=== PATIENT | female | born 1950 | race Caucasian/White ===

== ENCOUNTER 2019-10-31 17:33 | Outpatient (CLI) | payer OTHER | END 2019-10-31 17:34 | disposition home or self-care (01) | LOC: COV 17:33 | PROVIDERS: ATTEND Family Medicine | DX: R05 Cough (principal); R50.9 Fever, unspecified | CPT/HCPCS: 81599 ==

== ENCOUNTER 2022-08-02 11:26 | Outpatient (CLI) | payer MEDICARE | END 2022-08-02 11:27 | disposition short-term general hospital (02) | LOC: EMS 11:26 | DX: K59.00 Constipation, unspecified (principal); R41.82 Altered mental status, unspecified; R23.0 Cyanosis; T68.XXXA Hypothermia, initial encounter; X31.XXXA Exposure to excessive natural cold, initial encounter | CPT/HCPCS: A0425; A0429 ==

== ENCOUNTER 2023-01-11 10:41 | Outpatient (CLI) | payer MEDICARE ==
[2023-01-11 18:07] LABS: BASOPHILS # (AUTO) 0.1 10^3/uL (0.0-0.1); BASOPHILS % (AUTO) 0.9 %; EOSINOPHILS # (AUTO) 0.2 10^3/uL (0.0-0.7); EOSINOPHILS % (AUTO) 2.4 %; HCT - HEMATOCRIT 40.9 % (37.0-47.0); HGB - HEMOGLOBIN 13.1 g/dL (12.0-16.0); LYMPHOCYTES # (AUTO) 1.9 10^3/uL (1.5-3.5); MEAN CORPUSCULAR VOLUME 93.8 fL (81.0-99.0); MEAN PLATELET VOLUME 9.9 fL (7.9-10.8); MONOCYTES # (AUTO) 0.5 10^3/uL (0.0-1.0); MONOCYTES % (AUTO) 7.2 %; NEUTROPHILS # (AUTO) 4.1 10^3/uL (1.5-6.6); NEUTROPHILS % (AUTO) 61.4 %; PLT - PLATELET COUNT 233 10^3/uL (130-450); RED BLOOD COUNT 4.36 10^6/uL (4.20-5.40); RED CELL DISTRIBUTION WIDTH 12.9 % (12.0-15.0); WHITE BLOOD COUNT 6.7 x10^3/uL (4.8-10.8)
[2023-01-11 18:27] LABS: THYROID STIMULATING HORMONE 5.62 uIU/mL (0.34-5.60)
[2023-01-11 18:29] LABS: ALBUMIN 3.9 g/dL (3.2-5.5); ALBUMIN/GLOBULIN RATIO 1.3 (1.0-2.2); ALKALINE PHOSPHATASE 69 IU/L (42-121); ALT ALANINE AMINOTRANSFERASE 19 IU/L (10-60); AST ASPARTATE AMINOTRANSFERASE 25 IU/L (10-42); BILIRUBIN,TOTAL 0.7 mg/dL (0.2-1.0); BUN - BLOOD UREA NITROGEN 15 mg/dL (6-20); CALCIUM 9.1 mg/dL (8.5-10.3); CARBON DIOXIDE - CO2 31 mmol/L (21-32); CHLORIDE 105 mmol/L (101-111); CHOL/HDL RATIO 2.6 (<4.4); CHOLESTEROL 166 mg/dL; CREATININE 0.8 mg/dL (0.4-1.0); GFR - MDRD 71 (>89); GLUCOSE 80 mg/dL (70-100); HDL CHOLESTEROL 64 mg/dL; LDL CHOLESTEROL,CALCULATED 88 mg/dL; LDL/HDL RATIO 1.4 (<4.4); POTASSIUM 3.9 mmol/L (3.5-5.0); SODIUM 141 mmol/L (135-145); TOTAL PROTEIN 6.9 g/dL (6.7-8.2); TRIGLYCERIDES 71 mg/dL; VLDL CHOLESTEROL 14 mg/dL
[2023-01-11 19:20] LABS: FREE T4 (FREE THYROXINE) 1.02 ng/dL (0.58-1.64)
== END 2023-01-11 10:42 | disposition home or self-care (01) ==
LOC: LAB.N 10:41
PROVIDERS: ATTEND Family Medicine
DX: I10 Essential (primary) hypertension (principal); F33.1 Major depressive disorder, recurrent, moderate
CPT/HCPCS: 36415; 80053; 80061; 83721; 84439; 84443; 85025

== ENCOUNTER 2024-01-11 13:21 | Emergency (ER) | payer MEDICARE ==
[2024-01-11 13:46] LABS: BASOPHILS # (AUTO) 0.1 10^3/uL (0.0-0.1); BASOPHILS % (AUTO) 0.9 %; EOSINOPHILS # (AUTO) 0.2 10^3/uL (0.0-0.7); HCT - HEMATOCRIT 35.3 % (37.0-47.0); HGB - HEMOGLOBIN 12.1 g/dL (12.0-16.0); LYMPHOCYTES # (AUTO) 1.5 10^3/uL (1.5-3.5); LYMPHOCYTES % (AUTO) 23.1 %; MEAN CORPUSCULAR HEMOGLOBIN 30.6 pg (27.0-31.0); MEAN CORPUSCULAR HGB CONC 34.3 g/dL (32.0-36.0); MEAN CORPUSCULAR VOLUME 89.1 fL (81.0-99.0); MEAN PLATELET VOLUME 10.6 fL (7.9-10.8); MONOCYTES # (AUTO) 0.5 10^3/uL (0.0-1.0); MONOCYTES % (AUTO) 8.4 %; NEUTROPHILS # (AUTO) 4.1 10^3/uL (1.5-6.6); NEUTROPHILS % (AUTO) 64.3 %; PLT - PLATELET COUNT 249 10^3/uL (130-450); RED BLOOD COUNT 3.96 10^6/uL (4.20-5.40); RED CELL DISTRIBUTION WIDTH 13.3 % (12.0-15.0); WHITE BLOOD COUNT 6.4 x10^3/uL (4.8-10.8)
[2024-01-11 14:03] LABS: ALBUMIN 3.8 g/dL (3.2-5.5); ALBUMIN/GLOBULIN RATIO 1.5 (1.0-2.2); BILIRUBIN,TOTAL 0.6 mg/dL (0.2-1.0); CALCIUM 9.8 mg/dL (8.5-10.3); POTASSIUM 3.2 mmol/L (3.5-4.5); TOTAL PROTEIN 6.3 g/dL (6.4-8.9)
[2024-01-11] MEDS ORDERED: iohexoL-300 100 ML VIAL ONE (14:22)
[2024-01-11] MEDS: SODIUM CHLORIDE 0.9% 1,000 ML IV STA (14:22)
--- NOTE | 2024-01-11 15:03 | CT Report ---
PROCEDURE: Head WO INDICATIONS: persistent vomiting TECHNIQUE: Noncontrast 4.5 mm thick angled axial sections acquired from the foramen magnum to the vertex. For r adiation dose reduction, the following was used: automated exposure control, adjustment of mA and/or kV according to patient size. COMPARISON: None. FINDINGS: Image quality: Excellent. The ventricular system and cortical sulci demonstrate atrophy, consistent for patient's stated age. There are areas of hypodensity in the periventricular and subcortical white matter. There is no acut e intra or extra-axial fluid collection. No acute hemorrhage, mass lesion or midline shift. Brainst em is unremarkable. Globes are symmetrical. Sinuses are aerated. Osseous structures are intact. IMPRESSION: 1. No acute intracranial process. 2. Moderate atrophy and chronic microvascular ischemic changes. Reviewed by: Radha Sims MD on 01/11/2024 3:02 PM PDT Approved by: Radha Sims MD on 01/11/2024 3:02 PM PDT Station ID: [id number]
[2024-01-11] MEDS: ONDANSETRON 4 MG/2 ML VIAL IVP STA (15:10)
--- NOTE | 2024-01-11 15:11 | CT Report ---
PROCEDURE: Abdomen/Pelvis W INDICATIONS: vomiting, progressive weight loss CONTRAST: 100ml [id number] TECHNIQUE: After the administration of intravenous contrast, a CT scan of the abdomen and pelvis was performed. Images were recorded and evaluated at appropriate window settings. Reformats: coronal and sagittal. F or radiation dose reduction, the following was used: automated exposure control, adjustment of mA and /or kV according to patient size. COMPARISON: None. FINDINGS: Image quality: Diagnostic. Lower chest: Unremarkable. Liver: No solid mass. Gallbladder: Unremarkable. Biliary tree: No intrahepatic or extrahepatic dilation, accounting for age. Spleen: No splenomegaly. Pancreas: No pancreatic ductal dilation. Adrenals: No adrenal nodule. Kidneys and ureters: No hydronephrosis. No renal cystic lesion which requires follow up. No solid mas s. Stomach, bowel and peritoneum: No gastric or small bowel dilation. No abnormal wall thickening. No pa thologic free fluid. Colonic diverticula are present. There is a very small focus of descending colon in the left lower quadrant with minimal pericolonic stranding. Lymph nodes: No central or retroperitoneal adenopathy. Vessels: No infrarenal aortic aneurysm. Patent portal vein. PELVIS Reproductive organs: Unremarkable. Bladder: No abnormal wall thickening, accounting for underdistention. Pelvic lymph nodes: No pelvic adenopathy by size criteria. Bones: No aggressive osseous abnormality. Other: No significant ventral or inguinal hernia. IMPRESSION: Small focus of the descending colon with very minimal pericolonic stranding. This could represent ear ly colitis secondary to diverticulitis. Reviewed by: Radha Sims MD on 01/11/2024 3:10 PM PDT Approved by: Radha Sims MD on 01/11/2024 3:10 PM PDT Station ID: [id number]
--- NOTE | 2024-01-11 15:29 | ED Physician Documentation ---
History of Present Illness - Stated complaint Stated Complaint: NAUSEA,VOMITING,DIZZINESS - Chief complaint Chief Complaint: Abd Pain - History obtained from History obtained from: Patient - Additonal information Additional information: The patient comes to the emergency department chief complaint of nausea, vomiting, and dizziness that has been going on and off for the last 2 weeks. She states the dizziness is more of a lightheaded feeling. She denies chest pain or shortness of breath. She does not have any fevers. No diarrhea that is acute. She states that she just has an intermittent sense of queasiness and it really bothers her. She states she does have chronic appetite changes that have been going on for months and she is not sure why she does not feel hungry. She has also had issues intermittently swallowing her pills and her family is concerned about this. She just saw her primary provider and apparently they did not bring this up. Patient lives at [facility] because of care and needs. Her brother is here with her and has come from [place] to help her. He feels she has some dementia that the patient firmly denies this. She states that she attributes her appetite changes to not liking the food at [facility] and to feeling as though she just does not have much to be excited about in life, now that she lives there. The patient's brother states that the incident that triggered her coming here tonight was that apparently she choked on her pills yesterday. This seems to be an intermittent problem and some days the pills go down fine. The patient did not take her evening pills today because she was nauseated. However, she has been able to swallow water without difficulty and ate food earlier in the day and took her morning pills without difficulty. 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 - Present Medications Home Medications: Ambulatory Orders Medication Instructions Recorded Confirmed Amox/Clav 875/125 [Augmentin] 1 each PO Q12H #20 tablet 01/11/24 Ondansetron Odt [Zofran] 4 mg TL Q6H PRN #20 tablet 01/11/24 metroNIDAZOLE [Flagyl] 500 mg PO BID 10 Days #20 tablet 01/11/24 Magnesium Oxide [Mag Ox] 400 mg PO DAILY #30 tablet 01/16/24 Ondansetron Odt [Zofran] 4 mg TL BID #30 tablet 01/16/24 Potassium Bicarbonate 25 meq PO DAILY #30 tablet 01/16/24 [K-Effervescent] Sucralfate [Carafate] 1 gm PO HS 10 Days #100 ml 01/16/24 - Allergies Allergies/Adverse Reactions: Allergies Allergy/AdvReac Type Severity Reaction Status Date / Time No Known Drug Allergies Allergy Verified 01/11/24 13:32 - Social History Does the pt smoke?: No Smoking Status: Never smoker Does the pt drink ETOH?: Yes Does the pt have substance abuse?: No PD ED PE NORMAL - Vitals Vital signs reviewed: Yes - General General: No acute distress, Well developed/nourished, Other (Alert, answers questions appropriately) - HEENT HEENT: Atraumatic, EOMI, Moist mucous membranes - Neck Neck: Supple, no meningeal sign - Cardiac Cardiac: RRR, No murmur - Respiratory Respiratory: No respiratory distress, Clear bilaterally - Abdomen Abdomen: Soft, Non tender, Non distended - Derm Derm: Normal color, Warm and dry, No rash - Extremities Extremities: No deformity, No edema - Neuro Neuro: Other (Alert, grossly intact.) - Psych Psych: Normal mood, Normal affect Results - Vitals Vitals: Oxygen O2 Source Room air - EKG (time done) 1339 EKG releavant findings:: EKG personally interpreted by author of this note. Relevant findings are: Rate: Rate (enter#) (82) Rhythm: NSR [place]: LAD (Borderline) Intervals: Normal [place] QRS: Normal Ischemia: Non specific changes Compare to prior EKG: Old EKG unavailable Computer interpretation: Agree with computer - Labs Labs: Laboratory Tests 01/11/24 01/11/24 13:40 13:40 WBC 6.4 RBC 3.96 L Hgb 12.1 Hct 35.3 L MCV 89.1 MCH 30.6 MCHC 34.3 RDW 13.3 Plt Count 249 MPV 10.6 Neut # (Auto) 4.1 Lymph # (Auto) 1.5 [place] # (Auto) 0.5 Eos # (Auto) 0.2 Baso # (Auto) 0.1 Absolute Nucleated RBC 0.00 Nucleated RBC % 0.0 Sodium 139 Potassium 3.2 L Chloride 98 L Carbon Dioxide 27 Anion Gap 14.0 H BUN 17 Creatinine 1.0 Estimated GFR (MDRD) 55 L Glucose 96 Calcium 9.8 Total Bilirubin 0.6 AST 20 ALT 10 Alkaline Phosphatase 79 Total Protein 6.3 L Albumin 3.8 Globulin 2.5 Albumin/Globulin Ratio 1.5 Lipase 21 - Rads (name of study) CT head Relevant Findings:: Final report received, See rad report (No acute or remarkable findings) CT abdomen pelvis Relevant Findings:: Final report received, See rad report (Small focus of stranding in the descending colon, could represent diverticulitis) PD Medical Decision Making - ED course Complexity details: reviewed results, re-evaluated patient, considered differential, d/w patient, d/w family ED course: The patient had some very chronic issues going on with her appetite and possibly some depression, though she was not suicidal here. The nausea had been a recent development, but the difficulty swallowing the pills was something that had been intermittent for some time as well. I discussed with the patient and her brother that some of this would need to be addressed as an outpatient, but in consideration of the ongoing issues and the more recent addition of nausea, I did go ahead and order not only laboratory studies, but EKG, head CT to look for space-occupying lesion, and CT abdomen and pelvis to look for any further pathology to explain the patient's GI symptoms. The workup was done and was unremarkable except for a small area of inflammation in the descending colon. It was unclear whether this was of any actual significance to the patient's symptoms, but given that she has had more recent onset of vomiting, I will treat the possibility of diverticulitis. The patient was started on antibiotics. I discussed the findings with the patient and her brother and reiterated the need for following up with her primary to discuss her appetite issues, her dissatisfaction with [facility], and the possibility of some depression. We have discussed the usual indications for return. Departure - Departure Disposition: 01 Home, Self Care Clinical Impression: Diverticulitis Vomiting Qualifiers: Vomiting type: bilious vomiting Nausea presence: with nausea Qualified Code(s): R11.14 - Bilious vomiting Condition: Stable Instructions: ED Diverticulitis, ED Nausea Vomiting Prescriptions: Amox/Clav 875/125 [Augmentin] 1 each PO Q12H #20 tablet metroNIDAZOLE [Flagyl] 500 mg PO BID 10 Days #20 tablet Ondansetron Odt [Zofran] 4 mg TL Q6H PRN #20 tablet PRN Reason: Nausea / Vomiting Comments: Your laboratory studies look good. We got a CT scan of the abdomen and pelvis because you have reported recent development of vomiting on top of the chronic appetite changes that have been going on for months. The CT overall looked fairly good but did show a very small focus of some inflammation in your large intestine. This may be nothing, but the radiologist did raise the possibility of a very small area of diverticulitis. As such, to be on the safe side, you have been started on antibiotics for this. This could explain the difficulty you have had over the last several days with nausea, but certainly does not explain the ongoing issues with your appetite and ability to take pills. However, this is not an emergency department diagnosis but rather, something that needs to be worked up as an outpatient. There is also no role for inpatient workup and management of this issue. It is important that you let the nurse practitioner through [facility] know why you are not eating so she can assess what possibly needs to be done. This can involve anything from appetite stimulants to swallow studies to consideration of more invasive measures. Alternatively, it is also your choice to decide how you wish to live at your life and you should be forthcoming about how much intervention you wish to undergo. A prescription for antinausea medication and your antibiotics has been electronically transmitted to the [facility] here in [place]. Please pick them up tomorrow and take your next doses then. Forms: PCP List Discharge Date/Time: 01/11/24 16:12
[2024-01-11] MEDS: metroNIDAZOLE 250 MG TABLET PO STA (15:41)
[2024-01-11] MEDS: AMOX/CLAV 875 MG/125 MG TABLET PO STA (15:41)
[2024-01-11 16:15] VITALS: BP 160/107; O2SAT 100
--- NOTE | 2024-01-12 07:23 | ED Physician Documentation ---
ED Addendum - Addendum Addendum: 01/12/24 07:23 Call from Claudia this morning asking the medications be retransmitted to [facility]. This was done.
== END 2024-01-11 16:12 | disposition home or self-care (01) ==
LOC: ED 13:21
DX: K57.32 Diverticulitis of large intestine without perforation or abscess without bleeding (principal); R11.14 Bilious vomiting; I10 Essential (primary) hypertension; Z79.899 Other long term (current) drug therapy
CPT/HCPCS: 36415; 70450; 74177; 80053; 83690; 85025; 93005; 96361; 96374; 99284; A9270; Q9967

== ENCOUNTER 2024-01-13 16:33 | Outpatient (CLI) | payer MEDICARE | END 2024-01-13 23:59 | disposition EMS.NT | LOC: EMS 16:33 | DX: S00.83XA Contusion of other part of head, initial encounter (principal); W01.0XXA Fall on same level from slipping, tripping and stumbling without subsequent striking against object, initial encounter; Y93.01 Activity, walking, marching and hiking; Y92.009 Unspecified place in unspecified non-institutional (private) residence as the place of occurrence of the external cause ==

== ENCOUNTER 2024-01-16 11:28 | Emergency (ER) | payer MEDICARE ==
[2024-01-16 12:00] LABS: BASOPHILS # (AUTO) 0.1 10^3/uL (0.0-0.1); BASOPHILS % (AUTO) 0.5 %; EOSINOPHILS % (AUTO) 0.4 %; HCT - HEMATOCRIT 37.8 % (37.0-47.0); HGB - HEMOGLOBIN 12.9 g/dL (12.0-16.0); LYMPHOCYTES # (AUTO) 1.5 10^3/uL (1.5-3.5); LYMPHOCYTES % (AUTO) 15.7 %; MEAN CORPUSCULAR HEMOGLOBIN 30.4 pg (27.0-31.0); MEAN CORPUSCULAR HGB CONC 34.1 g/dL (32.0-36.0); MEAN CORPUSCULAR VOLUME 88.9 fL (81.0-99.0); MEAN PLATELET VOLUME 10.7 fL (7.9-10.8); MONOCYTES # (AUTO) 0.8 10^3/uL (0.0-1.0); MONOCYTES % (AUTO) 7.7 %; NEUTROPHILS # (AUTO) 7.3 10^3/uL (1.5-6.6); NEUTROPHILS % (AUTO) 75.3 %; PLT - PLATELET COUNT 302 10^3/uL (130-450); RED BLOOD COUNT 4.25 10^6/uL (4.20-5.40); RED CELL DISTRIBUTION WIDTH 13.7 % (12.0-15.0); WHITE BLOOD COUNT 9.7 x10^3/uL (4.8-10.8)
[2024-01-16 12:14] LABS: ALBUMIN 3.9 g/dL (3.2-5.5); BILIRUBIN,TOTAL 0.6 mg/dL (0.2-1.0); CALCIUM 10.3 mg/dL (8.5-10.3)
[2024-01-16 12:20] LABS: ALBUMIN/GLOBULIN RATIO 1.6 (1.0-2.2); CREATININE 0.9 mg/dL (0.6-1.3); TOTAL PROTEIN 6.4 g/dL (6.4-8.9)
--- NOTE | 2024-01-16 14:47 | ED Physician Documentation ---
PD HPI NVD - Stated complaint Stated Complaint: VOMIT - Chief complaint Chief Complaint: Abd Pain - History obtained from History obtained from: Patient - History of Present Illness Timing - onset: How many weeks ago (daughter states the patient has had very little appetitie for weeks. Can be somewhat hungry and ask for food and then east just 2-3 bites. Some weight loss but only mild. No vomiting nor diarrhea.) Timing - duration: Weeks Timing - details: Gradual onset, Still present, Waxing and waning Associated symptoms: Loss of appetite, Weight loss. 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 - Present Medications Home Medications: Ambulatory Orders Medication Instructions Recorded Confirmed Amox/Clav 875/125 [Augmentin] 1 each PO Q12H #20 tablet 01/11/24 Ondansetron Odt [Zofran] 4 mg TL Q6H PRN #20 tablet 01/11/24 metroNIDAZOLE [Flagyl] 500 mg PO BID 10 Days #20 tablet 01/11/24 Magnesium Oxide [Mag Ox] 400 mg PO DAILY #30 tablet 01/16/24 Ondansetron Odt [Zofran] 4 mg TL BID #30 tablet 01/16/24 Potassium Bicarbonate 25 meq PO DAILY #30 tablet 01/16/24 [K-Effervescent] Sucralfate [Carafate] 1 gm PO HS 10 Days #100 ml 01/16/24 - Allergies Allergies/Adverse Reactions: Allergies Allergy/AdvReac Type Severity Reaction Status Date / Time No Known Drug Allergies Allergy Verified 01/11/24 13:32 - Social History Does the pt smoke?: No Smoking Status: Never smoker Does the pt drink ETOH?: Yes Does the pt have substance abuse?: No - POLST Patient has POLST: No PD ED PE NORMAL - Vitals Vital signs reviewed: Yes - General General: Alert and oriented X 3, No acute distress, Well developed/nourished - HEENT HEENT: Atraumatic, Pharynx benign - Neck Neck: Supple, no meningeal sign, No adenopathy - Cardiac Cardiac: RRR, No murmur - Respiratory Respiratory: Clear bilaterally - Abdomen Abdomen: Normal bowel sounds, Soft, Non tender, Non distended - Neuro Neuro: No motor deficit, Normal speech. No: Alert and oriented X 3 (person and place. Seems to have some cognitive decline per daughter. Might have basic process such as gastritis wiithout pain or some degree of nausea not identified as such by patientl Can try acid reducing (already on famotididne) with carafate. And regular antiemetic rather than PRN.) Results - Vitals Vitals: Oxygen O2 Source Room air - Labs Labs: Laboratory Tests 01/16/24 01/16/24 01/16/24 11:42 11:42 11:47 WBC 9.7 RBC 4.25 Hgb 12.9 Hct 37.8 MCV 88.9 MCH 30.4 MCHC 34.1 RDW 13.7 Plt Count 302 MPV 10.7 Neut # (Auto) 7.3 H Lymph # (Auto) 1.5 [place] # (Auto) 0.8 Eos # (Auto) 0.0 Baso # (Auto) 0.1 Absolute Nucleated RBC 0.00 Nucleated RBC % 0.0 Sodium 140 Potassium 3.0 L Chloride 98 L Carbon Dioxide 26 Anion Gap 16.0 H BUN 11 Creatinine 0.9 Estimated GFR (MDRD) 62 L Glucose 127 H Calcium 10.3 Phosphorus 3.0 Magnesium 1.4 L Total Bilirubin 0.6 AST 23 ALT 11 Alkaline Phosphatase 71 Total Protein 6.4 Albumin 3.9 Globulin 2.5 Albumin/Globulin Ratio 1.6 Lipase 19 TSH 7.91 H - Rads (name of study) head CT Relevant Findings:: EMP independent interpretation of test (no acute ICH nor mass effects. ), See rad report PD Medical Decision Making - ED course Complexity details: reviewed results (Hea CT without acute process. Labs show low K, MG and TSH is elevated, so can have PCP add further thyroid eval.), considered differential (Poor appetite, with family member saying the pt will state hungry and requet food, eat a few bites and then be doneSometimes states nauseated but not aways. ), d/w patient, d/w family (daughter) Reviewed Lab Results: [facility] chemistry panel and CBC are okay with low Poassium and magnesium kavin the only abnormalities. Head CT without subdural r other acute. Departure - Departure Disposition: 01 Home, Self Care Clinical Impression: Poor appetite, Hypokalemia, Hypomagnesemia, Elevated TSH Condition: Stable Record reviewed to determine appropriate education?: Yes Prescriptions: Sucralfate [Carafate] 1 gm PO HS 10 Days #100 ml Potassium Bicarbonate [K-Effervescent] 25 meq PO DAILY #30 tablet Magnesium Oxide [Mag Ox] 400 mg PO DAILY #30 tablet Ondansetron Odt [Zofran] 4 mg TL BID #30 tablet Comments: The CT of your head is normal without any signs of acute bleeding or swelling. We did this to ensure no signs of acute injury given your recent fall with head strike. Regarding your lessened appetite and not feeling well, your blood tests are revealing a low potassium and magnesium. Low levels of these can create general weakness and sometimes have an upset stomach such that your appetite is less. Other considerations with less appetite are a low level of stomach irritation and/or nausea that creates the feeling of easy satiety. It does look like you are on an acid reducing medicine called famotidine. I would continue with that. You have had your other medicines for a while so I would not see a an acute medication because. New feelings of less appetite acutely could be caused by the acute antibiotics for the abdomen. If you have not finished those yet I would say you could just continue to discontinue them as you probably have been on them long enough. I would add a potassium and magnesium supplements. Rather than just as needed, I would actually try the Zofran twice daily regularly for the next couple of weeks and just see if it helps your intake and appetite. Along those lines I does so suggest sacral fate which helps coat the stomach and esophagus nightly for the next couple of weeks and see if that makes a difference as well. Follow-up with your primary care. I sent the prescriptions to your usual pharmacy. Summary points: 1. Stop the recent antibiotics if you are not done yet. 2. Continue other current medications. 3. Add a magnesium and potassium supplements daily for the next couple of weeks. 4. Add Zofran/ondansetron nausea medicine regularly twice daily for the next week or 2. 5. Add Carafate nightly for the next couple of weeks. 6. Follow-up with your primary care. Forms: PCP List Discharge Date/Time: 01/16/24 17:24
[2024-01-16 15:46] LABS: MAGNESIUM 1.4 mg/dL (1.7-2.3)
[2024-01-16] MEDS: ONDANSETRON ODT 4 MG TABLET TL STA (15:46)
[2024-01-16] MEDS: MAG HYDROX/AL HYDROX/SIMETH 30 ML UDC PO STA (15:46)
[2024-01-16] MEDS: POTASSIUM BICARB 25 MEQ TABLET PO STA (15:46)
[2024-01-16 16:01] LABS: THYROID STIMULATING HORMONE 7.91 uIU/mL (0.34-5.60)
--- NOTE | 2024-01-16 17:00 | CT Report ---
PROCEDURE: Head WO INDICATIONS: fall struck head 2 days ago TECHNIQUE: Noncontrast 4.5 mm thick angled axial sections acquired from the foramen magnum to the vertex. For r adiation dose reduction, the following was used: automated exposure control, adjustment of mA and/or kV according to patient size. COMPARISON: Head CT dated 01/11/2024. FINDINGS: Image quality: Excellent. CSF spaces: Basal cisterns are patent. No extra-axial fluid collections. Ventricles are normal in size and shape. Brain: No midline shift. No intracranial masses or hemorrhage. Isaac-white matter interface is norm al. Intracranial carotid calcifications. Age-related volume loss and mild to moderate small vessel i schemic change. Skull and face: Calvarium and visualized facial bones are intact, without suspicious lesions. Sinuses: Visualized sinuses and mastoids are clear. IMPRESSION: No acute intracranial pathology. Age-related volume loss and mild to moderate small vessel ischemic change. Reviewed by: Edgardo Benjamin MD on 01/16/2024 4:59 PM PDT Approved by: Edgardo Benjamin MD on 01/16/2024 4:59 PM PDT Station ID: [id number]
[2024-01-16] MEDS: MAGNESIUM OXIDE 400 MG TABLET PO STA (17:01)
[2024-01-16 17:24] VITALS: BP 123/78; O2SAT 98
== END 2024-01-16 17:24 | disposition home or self-care (01) ==
LOC: ED 11:28
DX: R63.0 Anorexia (principal); E87.6 Hypokalemia; E83.42 Hypomagnesemia; R94.6 Abnormal results of thyroid function studies
CPT/HCPCS: 36415; 70450; 80053; 83690; 83735; 84100; 84443; 85025; 99284; A9270; Q0162

== ENCOUNTER 2024-03-01 10:18 | Outpatient (CLI) | payer MEDICARE ==
[2024-03-01 10:33] LABS: BASOPHILS # (AUTO) 0.1 10^3/uL (0.0-0.1); BASOPHILS % (AUTO) 0.9 %; EOSINOPHILS # (AUTO) 0.1 10^3/uL (0.0-0.7); EOSINOPHILS % (AUTO) 0.7 %; HCT - HEMATOCRIT 38.1 % (37.0-47.0); HGB - HEMOGLOBIN 12.7 g/dL (12.0-16.0); LYMPHOCYTES # (AUTO) 1.8 10^3/uL (1.5-3.5); LYMPHOCYTES % (AUTO) 22.1 %; MEAN CORPUSCULAR HEMOGLOBIN 31.1 pg (27.0-31.0); MEAN CORPUSCULAR HGB CONC 33.3 g/dL (32.0-36.0); MEAN CORPUSCULAR VOLUME 93.2 fL (81.0-99.0); MEAN PLATELET VOLUME 9.7 fL (7.9-10.8); MONOCYTES # (AUTO) 0.8 10^3/uL (0.0-1.0); MONOCYTES % (AUTO) 9.6 %; NEUTROPHILS # (AUTO) 5.3 10^3/uL (1.5-6.6); NEUTROPHILS % (AUTO) 66.3 %; PLT - PLATELET COUNT 327 10^3/uL (130-450); RED BLOOD COUNT 4.09 10^6/uL (4.20-5.40); RED CELL DISTRIBUTION WIDTH 14.1 % (12.0-15.0)
[2024-03-01 10:44] LABS: ALBUMIN 3.8 g/dL (3.2-5.5); ALBUMIN/GLOBULIN RATIO 1.2 (1.0-2.2); BILIRUBIN,TOTAL 0.7 mg/dL (0.2-1.0); CREATININE 0.8 mg/dL (0.6-1.3); TOTAL PROTEIN 6.9 g/dL (6.4-8.9)
== END 2024-03-01 10:19 | disposition home or self-care (01) ==
LOC: LAB 10:18
PROVIDERS: ATTEND Physician Assistant
DX: K14.4 Atrophy of tongue papillae (principal)
CPT/HCPCS: 36415; 80053; 82607; 82746; 83540; 85025

== ENCOUNTER 2024-03-21 09:04 | Outpatient (CLI) | payer MEDICARE | END 2024-03-21 09:05 | disposition home or self-care (01) | LOC: LAB 09:04 | PROVIDERS: ATTEND Family Medicine | DX: R41.0 Disorientation, unspecified (principal); F22 Delusional disorders | CPT/HCPCS: 87086 ==

== ENCOUNTER 2024-04-04 17:21 | Outpatient (CLI) | payer MEDICARE ==
[2024-04-04 17:32] LABS: BASOPHILS # (AUTO) 0.1 10^3/uL (0.0-0.1); BASOPHILS % (AUTO) 1.2 %; EOSINOPHILS # (AUTO) 0.1 10^3/uL (0.0-0.7); EOSINOPHILS % (AUTO) 1.2 %; HCT - HEMATOCRIT 33.3 % (37.0-47.0); HGB - HEMOGLOBIN 10.6 g/dL (12.0-16.0); LYMPHOCYTES # (AUTO) 1.7 10^3/uL (1.5-3.5); LYMPHOCYTES % (AUTO) 31.9 %; MEAN CORPUSCULAR HEMOGLOBIN 31.8 pg (27.0-31.0); MEAN CORPUSCULAR HGB CONC 31.8 g/dL (32.0-36.0); MEAN PLATELET VOLUME 9.4 fL (7.9-10.8); MONOCYTES # (AUTO) 0.4 10^3/uL (0.0-1.0); MONOCYTES % (AUTO) 8.3 %; NEUTROPHILS % (AUTO) 57.2 %; PLT - PLATELET COUNT 219 10^3/uL (130-450); RED BLOOD COUNT 3.33 10^6/uL (4.20-5.40); RED CELL DISTRIBUTION WIDTH 14.1 % (12.0-15.0); WHITE BLOOD COUNT 5.2 x10^3/uL (4.8-10.8)
[2024-04-04 18:14] LABS: THYROID STIMULATING HORMONE 3.24 uIU/mL (0.34-5.60)
[2024-04-04 20:56] LABS: ALBUMIN 3.3 g/dL (3.2-5.5); ALBUMIN/GLOBULIN RATIO 1.2 (1.0-2.2); BILIRUBIN,TOTAL 0.3 mg/dL (0.2-1.0); CALCIUM 9.1 mg/dL (8.5-10.3); CREATININE 0.5 mg/dL (0.6-1.3); POTASSIUM 3.7 mmol/L (3.5-4.5); TOTAL PROTEIN 6.1 g/dL (6.4-8.9)
== END 2024-04-04 17:22 | disposition home or self-care (01) ==
LOC: LAB 17:21
PROVIDERS: ATTEND Emergency Medicine
DX: R41.0 Disorientation, unspecified (principal)
CPT/HCPCS: 36415; 80053; 84439; 84443; 85025